=== PATIENT | female | born 1985 | race American Indian/Alaskan Native ===

== ENCOUNTER 2017-04-24 20:45 | Emergency (ER) | payer MEDICAID ==
[2017-04-24 21:31] LABS: Basophils % (Auto) 0.3 % (0.0-1.8); Eosinophils % (Auto) 0.4 % (0.0-4.3); Hematocrit 28.7 % (30.3-42.9); Hemoglobin 9.7 gm/dl (10.1-14.3); Mean Corpuscular HGB Conc 34 % (30-34); Mean Corpuscular Hemoglobin 30 pg (28-32); Mean Corpuscular Volume 87 fl (79-97); Platelet Count 228 K/mm3 (140-440); Red Blood Count 3.28 M/mm3 (3.65-5.03); Red Cell Distribution Width 14.3 % (13.2-15.2); White Blood Count 6.2 K/mm3 (4.5-11.0)
[2017-04-24] MEDS ORDERED: NACL 0.9% 1000 ML 1,000 ML IV ONE (21:36)
[2017-04-24 21:52] LABS: Albumin 3.6 g/dL (3.9-5); Albumin/Globulin Ratio 1.1 %; Alkaline Phosphatase 40 units/L (35-129); Anion Gap 17 mmol/L; Blood Urea Nitrogen 8 mg/dL (7-17); Calcium 8.4 mg/dL (8.4-10.2); Carbon Dioxide 21 mmol/L (22-30); Chloride 103.7 mmol/L (98-107); Glucose 128 mg/dL (65-100); Potassium 3.9 mmol/L (3.6-5.0); Sodium 138 mmol/L (137-145); Total Protein 6.8 g/dL (6.3-8.2)
[2017-04-24 22:00] LABS: Alanine Aminotransferase < 5 units/L (7-56)
[2017-04-24 23:30] VITALS: BP 108/63
[2017-04-24 23:35] LABS: Urine Drugs of Abuse Note Disclamer
--- NOTE | 2017-04-24 23:43 | Emergency Department Report ---
ED Syncope HPI - General Chief Complaint: Syncope Stated Complaint: LACERATION TO HEAD/FALL Time Seen by Provider: 04/24/17 21:35 - History of Present Illness Initial Comments: Patient is a 31-year-old female at 27 weeks who presents status post syncope and right head pain. Patient states that she was out restaurant and then she got up from standing and walked one or 2 feet and then fell. She fell on her right head she had no loss of consciousness. She felt like she wanted to get back up right after the fall. Her pain is a 4 out of 10 minutes located in the right temporal area nothing makes it better or worse. Patient states that she has had any syncopal episodes before in the past. She states that she hasn't been drinking much water today and hasn't had much to eat because she's been slightly nauseous. 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 - Related Data Allergies/Adverse Reactions: Allergies No Known Allergies Allergy (Unverified 04/24/17 20:50) Home Medications: Ambulatory Orders Iron 100 Plus Tablet 1 cap PO DAILY 04/24/17 Complete Caplet 1 cap PO DAILY 04/24/17 ED Review of Systems ROS: Stated complaint: LACERATION TO HEAD/FALL Other details as noted in HPI Constitutional: denies: chills, fever Eyes: denies: eye pain, eye discharge, vision change ENT: denies: ear pain, throat pain Respiratory: denies: cough, shortness of breath, wheezing Cardiovascular: syncope. denies: chest pain, palpitations Endocrine: no symptoms reported Gastrointestinal: denies: abdominal pain, nausea, diarrhea Genitourinary: denies: urgency, dysuria, discharge Musculoskeletal: denies: back pain, joint swelling, arthralgia Skin: denies: rash, lesions Neurological: headache. denies: weakness, paresthesias Psychiatric: denies: anxiety, depression Hematological/Lymphatic: denies: easy bleeding, easy bruising ED Past Medical Hx - Past Medical History Previous Medical History?: No - Surgical History Past Surgical History?: No - Social History Smoking Status: Never Smoker Substance Use Type: None - Medications Home Medications: Home Medications Medication Instructions Recorded Confirmed Last Taken Type Iron 100 Plus Tablet 1 cap PO DAILY 04/24/17 04/24/17 Unknown History Complete Caplet 1 cap PO DAILY 04/24/17 04/24/17 Unknown History ED Physical Exam - General Limitations: No Limitations General appearance: alert, in no apparent distress - Head Head exam: Present: normocephalic, other (2 x 3 cm abrasion no laceration) - Eye Eye exam: Present: normal appearance - ENT ENT exam: Present: mucous membranes moist - Neck Neck exam: Present: normal inspection - Respiratory Respiratory exam: Present: normal lung sounds bilaterally. Absent: respiratory distress - Cardiovascular Cardiovascular Exam: Present: regular rate, normal rhythm. Absent: systolic murmur, diastolic murmur, rubs, gallop - GI/Abdominal GI/Abdominal exam: Present: soft, normal bowel sounds, other (gravid uterus feel baby kicking) - Extremities Exam Extremities exam: Present: normal inspection - Back Exam Back exam: Present: normal inspection - Neurological Exam Neurological exam: Present: alert, oriented X3 - Psychiatric Psychiatric exam: Present: normal affect, normal mood - Skin Skin exam: Present: warm, dry, intact, normal color. Absent: rash ED Course Vital Signs 04/24/17 04/24/17 04/24/17 20:52 20:57 21:00 Temperature 98.4 F Pulse Rate 55 L 78 Respiratory 16 14 Rate Blood Pressure 77/36 95/48 95/48 Blood Pressure 95/48 [Left] O2 Sat by Pulse 99 100 100 Oximetry 04/24/17 04/24/17 04/24/17 21:15 21:30 21:45 Temperature Pulse Rate 76 74 74 Respiratory 23 18 17 Rate Blood Pressure 105/60 106/55 106/62 Blood Pressure [Left] O2 Sat by Pulse 100 100 100 Oximetry 04/24/17 04/24/17 04/24/17 22:00 22:15 22:30 Temperature Pulse Rate 75 82 76 Respiratory 22 11 L 20 Rate Blood Pressure 103/59 107/60 108/64 Blood Pressure [Left] O2 Sat by Pulse 100 100 Oximetry 04/24/17 04/24/17 04/24/17 22:45 23:00 23:28 Temperature Pulse Rate 75 73 76 Respiratory 28 H 33 H 22 Rate Blood Pressure 105/64 108/63 Blood Pressure [Left] O2 Sat by Pulse 100 100 100 Oximetry 04/24/17 04/24/17 23:30 23:46 Temperature Pulse Rate 83 71 Respiratory 21 19 Rate Blood Pressure Blood Pressure [Left] O2 Sat by Pulse 100 100 Oximetry ED Medical Decision Making - Lab Data Result diagrams: 04/24/17 21:16 04/24/17 21:16 Labs 04/24/17 04/24/17 04/24/17 20:53 21:16 21:16 WBC 6.2 RBC 3.28 L Hgb 9.7 L Hct 28.7 L MCV 87 MCH 30 MCHC 34 RDW 14.3 Plt Count 228 Lymph % (Auto) 25.2 Glades % (Auto) 5.5 Eos % (Auto) 0.4 Baso % (Auto) 0.3 Lymph # 1.6 Glades # 0.3 Eos # 0.0 Baso # 0.0 Seg Neutrophils % 68.6 Seg Neutrophils # 4.2 Sodium 138 Potassium 3.9 Chloride 103.7 Carbon Dioxide 21 L Anion Gap 17 BUN 8 Creatinine 0.5 L Estimated GFR > 60 BUN/Creatinine Ratio 16.00 Glucose 128 H POC Glucose 145 H Lactic Acid Calcium 8.4 Magnesium 2.00 Total Bilirubin 0.20 AST 18 ALT < 5 L Alkaline Phosphatase 40 Total Protein 6.8 Albumin 3.6 L Albumin/Globulin Ratio 1.1 TSH Urine Color Urine Turbidity Urine pH Ur Specific [place] Urine Protein Urine Glucose (UA) Urine Ketones Urine Blood Urine Nitrite Urine Bilirubin Urine Urobilinogen Ur Leukocyte Esterase Urine WBC (Auto) Urine RBC (Auto) U Epithel Cells (Auto) Urine Bacteria (Auto) Hyaline Casts Salicylates Urine Opiates Screen Urine Methadone Screen Acetaminophen Ur Barbiturates Screen Ur Phencyclidine Scrn Ur Amphetamines Screen U Benzodiazepines Scrn Urine Cocaine Screen U Marijuana (THC) Screen Drugs of Abuse Note Plasma/Serum Alcohol Blood Type Antibody Screen 04/24/17 04/24/17 04/24/17 21:16 21:16 21:16 WBC RBC Hgb Hct MCV MCH MCHC RDW Plt Count Lymph % (Auto) Glades % (Auto) Eos % (Auto) Baso % (Auto) Lymph # [place] # Eos # Baso # Seg Neutrophils % Seg Neutrophils # Sodium Potassium Chloride Carbon Dioxide Anion Gap BUN Creatinine Estimated GFR BUN/Creatinine Ratio Glucose POC Glucose Lactic Acid 1.00 Calcium Magnesium Total Bilirubin AST ALT Alkaline Phosphatase Total Protein Albumin Albumin/Globulin Ratio TSH 0.549 Urine Color Urine Turbidity Urine pH Ur Specific [place] Urine Protein Urine Glucose (UA) Urine Ketones Urine Blood Urine Nitrite Urine Bilirubin Urine Urobilinogen Ur Leukocyte Esterase Urine WBC (Auto) Urine RBC (Auto) U Epithel Cells (Auto) Urine Bacteria (Auto) Hyaline Casts Salicylates < 0.3 L Urine Opiates Screen Urine Methadone Screen Acetaminophen Ur Barbiturates Screen Ur Phencyclidine Scrn Ur Amphetamines Screen U Benzodiazepines Scrn Urine Cocaine Screen U Marijuana (THC) Screen Drugs of Abuse Note Plasma/Serum Alcohol Blood Type Antibody Screen 04/24/17 04/24/17 04/24/17 21:16 21:16 21:16 WBC RBC Hgb Hct MCV MCH MCHC RDW Plt Count Lymph % (Auto) [place]ades % (Auto) Eos % (Auto) Baso % (Auto) Lymph # [place] # Eos # Baso # Seg Neutrophils % Seg Neutrophils # Sodium Potassium Chloride Carbon Dioxide Anion Gap BUN Creatinine Estimated GFR BUN/Creatinine Ratio Glucose POC Glucose Lactic Acid Calcium Magnesium Total Bilirubin AST ALT Alkaline Phosphatase Total Protein Albumin Albumin/Globulin Ratio TSH Urine Color Urine Turbidity Urine pH Ur Specific [place] Urine Protein Urine Glucose (UA) Urine Ketones Urine Blood Urine Nitrite Urine Bilirubin Urine Urobilinogen Ur Leukocyte Esterase Urine WBC (Auto) Urine RBC (Auto) U Epithel Cells (Auto) Urine Bacteria (Auto) Hyaline Casts Salicylates Urine Opiates Screen Urine Methadone Screen Acetaminophen < 15.0 Ur Barbiturates Screen Ur Phencyclidine Scrn Ur Amphetamines Screen U Benzodiazepines Scrn Urine Cocaine Screen U Marijuana (THC) Screen Drugs of Abuse Note Plasma/Serum Alcohol < 0.01 Blood Type O POSITIVE Antibody Screen Negative 04/24/17 04/24/17 04/24/17 23:30 23:30 23:38 WBC RBC Hgb Hct MCV MCH MCHC RDW Plt Count Lymph % (Auto) Glades % (Auto) Eos % (Auto) Baso % (Auto) Lymph # [place] # Eos # Baso # Seg Neutrophils % Seg Neutrophils # Sodium Potassium Chloride Carbon Dioxide Anion Gap BUN Creatinine Estimated GFR BUN/Creatinine Ratio Glucose POC Glucose Lactic Acid 0.70 Calcium Magnesium Total Bilirubin AST ALT Alkaline Phosphatase Total Protein Albumin Albumin/Globulin Ratio TSH Urine Color Straw Urine Turbidity Clear Urine pH 7.0 Ur Specific [place] 1.006 Urine Protein <15 mg/dl Urine Glucose (UA) Neg Urine Ketones Tr Urine Blood Neg Urine Nitrite Neg Urine Bilirubin Neg Urine Urobilinogen < 2.0 Ur Leukocyte Esterase Neg Urine WBC (Auto) 2.0 Urine RBC (Auto) 3.0 U Epithel Cells (Auto) 4.0 Urine Bacteria (Auto) 1+ Hyaline Casts 4 Salicylates Urine Opiates Screen Presumptive negative Urine Methadone Screen Presumptive negative Acetaminophen Ur Barbiturates Screen Presumptive negative Ur Phencyclidine Scrn Presumptive negative Ur Amphetamines Screen Presumptive negative U Benzodiazepines Scrn Presumptive negative Urine Cocaine Screen Presumptive negative U Marijuana (THC) Screen Presumptive positive Drugs of Abuse Note Disclamer Plasma/Serum Alcohol Blood Type Antibody Screen - EKG Data -: EKG Interpreted by Me - EKG Data 04/24/17 23:43 EKG shows normal sinus rhythm also shows minimal criteria for LVH. No axis deviation no ST segment elevation or T-wave inversion. - Medical Decision Making Chief medical diagnosis: Vasovagal syncope secondary to dehydration Differential medical diagnosis: Hyponatremia, , urinary tract infection IV fluids, CBC, CMP, EKG, ED bedside ultrasound ED [id number] ultrasound: Shows intrauterine with viable heartbeat. movement. Patient's clinical signs and symptoms are consistent with vasovagal syncope secondary to patient not drinking a lot of water. The patient getting up quickly from her chair. Will hydrate patient and will give patient return precautions come back to the emergency department. Patient's lab work is unremarkable. Patient agrees to plan. Critical care attestation.: If time is entered above; I have spent that time in minutes in the direct care of this critically ill patient, excluding procedure time. ED Disposition Clinical Impression: Vasovagal syncope, Dehydration during Qualifiers: Weeks of gestation: 27 weeks Qualified Code(s): Z3A.27 - 27 weeks gestation of Forehead abrasion Qualifiers: Encounter type: initial encounter Qualified Code(s): S00.81XA - Abrasion of other part of head, initial encounter Disposition: DC-01 TO HOME OR SELFCARE Is pt being admited?: No Does the pt Need Aspirin: No Condition: Stable Instructions: Syncope (ED) Referrals: DANIEL NAVAS MD [Primary Care Provider] - 3-5 Days Time of Disposition: 23:46
[2017-04-24] MEDS ORDERED: TYLENOL PO ONE (23:46)
[2017-04-24 23:50] LABS: Bacteria,Urine 1+ /HPF (Negative); Bilirubin,Urine NEG (Negative); Blood,Urine NEG (Negative); Ketones,Urine TR mg/dL (Negative); Leukocyte Esterase,Urine NEG (Negative); Nitrite,Urine NEG (Negative); Protein,Urine <15 mg/dL mg/dL (Negative); Urobilinogen,Urine < 2.0 mg/dL (<2.0)
== END 2017-04-24 23:56 | disposition home or self-care (01) ==
LOC: ED 20:45
DX: O26.892 Other specified pregnancy related conditions, second trimester (principal); S00.81XA Abrasion of other part of head, initial encounter; R55 Syncope and collapse; E86.0 Dehydration; W18.30XA Fall on same level, unspecified, initial encounter; Y93.89 Activity, other specified; Y92.89 Other specified places as the place of occurrence of the external cause; Y99.8 Other external cause status
CPT/HCPCS: 36415; 80053; 80307; 81001; 82140; 82962; 83735; 84443; 85025; 86850; 86900; 86901; 93005; 93010; 96360; 99284; G0480; J7030; 80320

== ENCOUNTER 2017-08-13 12:47 | Inpatient (IN) | payer MEDICAID ==
[2017-08-13] MEDS ORDERED: MAGNESIUM SULFATE 4GM/100ML 4 GM/100 ML BAG IV ONE (14:03)
--- NOTE | 2017-08-13 14:06 | History and Physical Report ---
History of Present Illness Date of examination: 08/13/17 Date of admission: 08/13/17 13:16 Chief complaint: elevated blood pressure, headache History of present illness: Pt is a 32 year old -Italian female who presented to the office initially for preoperative visit for tubal ligation. However, her blood pressure was noted to be 160-170/90s with no previous history of hypertension. The patient does complain of headache x 1 week. She denies blurred vision or scotomata. She recently had a vaginal after approximately 6 wks ago that she tolerated well. 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 Family/Genetic History: diabetes Social history: no significant social history - Obstetrical History : 6 Medications and Allergies Allergies Allergy/AdvReac Type Severity Reaction Status Date / Time No Known Allergies Allergy Verified 08/11/17 18:48 Home Medications Medication Instructions Recorded Confirmed Last Taken Type Ferrous Sulfate [Feosol 325 MG tab] 325 mg PO BID #60 tablet 07/05/17 08/11/17 Unknown Rx Review of Systems All systems: negative - Physical Exam Breasts: Positive: deferred Cardiovascular: Regular rate Lungs: Positive: Clear to auscultation Abdomen: Positive: soft Extremities: Positive: normal Results Result Diagrams: 08/13/17 14:33 08/13/17 14:33 All other labs normal. Assessment and Plan A: s/p recent Preeclampsia P: Admit for magnesium sulfate for seizure prophylaxis. PIH labs Magnesium levels q 8 hrs Labetalol 100 mg BID Continue to monitor clinical status.
[2017-08-13] MEDS ORDERED: CALCIUM GLUCONATE IV ONE (14:30)
[2017-08-13 14:58] LABS: Hematocrit 34.3 % (30.3-42.9); Hemoglobin 11.1 gm/dl (10.1-14.3); Mean Corpuscular HGB Conc 32 % (30-34); Mean Corpuscular Hemoglobin 28 pg (28-32); Mean Corpuscular Volume 87 fl (79-97); Platelet Count 236 K/mm3 (140-440); Red Blood Count 3.93 M/mm3 (3.65-5.03); Red Cell Distribution Width 14.6 % (13.2-15.2)
[2017-08-13] MEDS ORDERED: PITOCin/NS 20 UNIT/1000ML DRIP 20 UNITS/1,000 ML BAG IV SCH (15:00)
[2017-08-13] MEDS ORDERED: MAGNESIUM SULFATE 40GM/1000ML 40 GM/1,000 ML BAG IV SCH (15:00)
[2017-08-13 15:30] LABS: Alanine Aminotransferase 8 units/L (7-56); Lactate Dehydrogenase 179 units/L (91-180); Uric Acid 3.9 mg/dL (3.5-7.6)
[2017-08-13] MEDS: LACTATED RINGERS 1,000 ML IV SCH (16:22)
[2017-08-13 17:56] LABS: Bacteria,Urine 1+ /HPF (Negative); Bilirubin,Urine NEG (Negative); Blood,Urine LG (Negative); Ketones,Urine NEG (Negative); Leukocyte Esterase,Urine NEG (Negative); Mucus,Urine FEW /HPF; Nitrite,Urine NEG (Negative); Urobilinogen,Urine < 2.0 mg/dL (<2.0)
[2017-08-13] MEDS: NORMODYNE PO SCH (21:38)
[2017-08-14] MEDS: LACTATED RINGERS 1,000 ML IV SCH ×2 (01:39→13:47)
[2017-08-14] MEDS ORDERED: TYLENOL #3 PO PRN (05:57)
[2017-08-14] MEDS ORDERED: TYLENOL PO PRN (06:02)
[2017-08-14] MEDS: NORMODYNE PO SCH (11:03)
[2017-08-14] MEDS ORDERED: FIORICET PO PRN (14:03)
--- NOTE | 2017-08-14 16:11 | Progress Note ---
Assessment and Plan A: HD#2 admitted for Preeclampsia on Magnesium sulfate for seizure prophylaxis P: Continue magnesium x 24 hrs. Per pt request discharge this evening with follow up in 1 week. Subjective - Subjective Date of service: 08/14/17 Principal diagnosis: Preeclampsia Interval history: No overnight events. Pt still has headache. Patient reports: appetite normal, voiding normally, pain well controlled, ambulating normally, no nauseated Objective - Vital Signs Latest vital signs: Vital Signs Temp Pulse Resp BP BP Pulse Ox 08/14/17 12:32 97.7 F 76 18 129/86 99 08/14/17 08:35 97.4 F L 18 137/95 08/14/17 06:41 18 08/14/17 06:39 98.4 F 52 L 154/96 08/14/17 04:25 98.6 F 57 L 18 152/93 08/14/17 00:00 98.0 F 59 L 18 162/92 08/13/17 22:10 98.2 F 62 18 134/94 08/13/17 20:00 98.2 F 60 18 155/95 08/13/17 19:00 18 08/13/17 16:48 66 133/78 08/13/17 16:42 64 133/81 08/13/17 16:35 65 127/82 08/13/17 16:31 66 136/83 08/13/17 16:25 60 134/91 08/13/17 16:19 60 133/82 Intake and Output 08/14/17 08/14/17 08/14/17 06:59 14:59 22:59 Intake Total 1360 1280 Balance 1360 1280 Intake: IV 1000 1000 Lactated Ringers 1,000 ml 1000 1000 @ 125 mls/hr IV DIRECT [facility] Rx#:[id number] Oral 360 280 Other: Intake, Other Source Saline Solution Total, Intake Amount 120 280 # Voids Void 2 1 - Exam Breasts: Present: deferred Cardiovascular: Present: Regular rate Lungs: Present: Clear to auscultation Abdomen: Present: soft Extremities: Present: normal - Labs Labs: Abnormal lab results 08/14/17 Range/Units 00:20 Magnesium 4.60 H (1.7-2.3) mg/dL
--- NOTE | 2017-08-14 16:16 | Discharge Summary ---
Providers - Providers Date of Admission: 08/13/17 13:16 Date of discharge: 08/14/17 Attending physician: KALA STEWART Primary care physician: LEEANNA GIRARD Hospitalization Reason for admission: other ( Preeclampsia ) Procedure details: IV Magnesium Sulfate for seizure prophylaxis Other procedures: none complications: none Hospital course: Pt was admitted for IV Magnesium Sulfate for seizure prophylaxis for 24 hrs. She had serial blood pressures and was discharged on the evening of HD#1. She will follow up in 1 week for a blood pressure check. Condition at discharge: Stable Disposition: DC-01 TO HOME OR SELFCARE - Discharge Diagnoses (1) Preeclampsia in period Status: Acute Plan - Discharge Medications Prescriptions: Labetalol HCl 100 mg PO BID #60 tablet - Provider Discharge Summary Activity: routine Diet: routine Instructions: routine Additional instructions: [] Smoking cessation referral if applicable(refer to patient education folder for contact #) [] Refer to [facility] Booklet Call your doctor immediately for: * Fever > 100.5 * Heavy vaginal bleeding ( >1 pad per hour) * Severe persistent headache * Shortness of breath * Reddened, hot, painful area to leg or breast * Drainage or odor from incision. * Keep incision clean and dry at all times and follow doctor's instructions regarding bathing/showering - Follow up plan Follow up: LEEANNA GIRARD MD [Primary Care Provider] - 7 Days KALA STEWART MD [Staff Physician] - 08/18/17 (as scheduled for bilateral tubal ligation )
[2017-08-14 18:01] VITALS: BP 151/96
== END 2017-08-14 18:22 | disposition home or self-care (01) | DRG 776 ==
LOC: UNDOADMIN 12:47 → 3A 12:47 → OB 13:16
PROVIDERS: ADMIT Obstetrics & Gynecology; ATTEND Obstetrics & Gynecology
DX: O14.95 Unspecified pre-eclampsia, complicating the puerperium (principal); Z83.3 Family history of diabetes mellitus
CPT/HCPCS: 36415; 81001; 82565; 83615; 83735; 84450; 84460; 84550; 85027; J0610; J3475; J7120

== ENCOUNTER 2017-08-18 06:55 | Day surgery (SDC) | payer MEDICAID ==
--- NOTE | 2017-08-15 03:40 | History and Physical Report ---
History of Present Illness Date of examination: 08/13/17 Chief complaint: Undesired Fertility History of present illness: Pt is a 32 year old female who presents for surgical sterilization. She is aware of long-acting reversible methods and desires to proceed. She was recently hospitalized from 08/13/17 to 08/14/17 for preeclampsia. 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 Family/Genetic History: diabetes Social history: no significant social history - Obstetrical History : 7 Medications and Allergies Allergies Allergy/AdvReac Type Severity Reaction Status Date / Time No Known Allergies Allergy Verified 08/11/17 18:48 Home Medications Medication Instructions Recorded Confirmed Last Taken Type Ferrous Sulfate [Feosol 325 MG tab] 325 mg PO BID #60 tablet 07/05/17 08/11/17 Unknown Rx Butalbital/Acetaminophen 1 each PO Q6H PRN #30 tablet 08/14/17 Unknown Rx [Butalbital-Acetaminophn 50-325] Labetalol HCl 100 mg PO BID #60 tablet 08/14/17 Unknown Rx Review of Systems All systems: negative - Physical Exam Breasts: Positive: deferred Cardiovascular: Regular rate Lungs: Positive: Clear to auscultation Abdomen: Positive: soft Extremities: Positive: normal Results All other labs normal. Assessment and Plan A: Undesired Fertility Hypertension ( preeclampsia; taking Labetalol 100 mg BID) P: Proceed with laparoscopic bilateral tubal ligation and other indicated procedures.
[~2017-08-18 06:55] MED LIST: ANCEF/STERILE WATER 2 GM/20 ML 2 GM/20 ML SYRINGE IV NR
[2017-08-18] MEDS ORDERED: NACL BACTERIOSTATIC INFILTRATI ONE (07:37)
[2017-08-18] MEDS ORDERED: ZEMURON IV ONE (08:11)
[2017-08-18] MEDS ORDERED: SUBLIMAZE ONE (08:11)
[2017-08-18] MEDS ORDERED: XYLOCAINE MPF 2% ONE (08:11)
[2017-08-18] MEDS ORDERED: DIPRIVAN 10 MG/ML IV ONE (08:12)
[2017-08-18 08:41] LABS: Hematocrit 34.6 % (30.3-42.9); Hemoglobin 11.5 gm/dl (10.1-14.3); Mean Corpuscular HGB Conc 33 % (30-34); Mean Corpuscular Hemoglobin 29 pg (28-32); Mean Corpuscular Volume 86 fl (79-97); Platelet Count 221 K/mm3 (140-440); Red Blood Count 4.03 M/mm3 (3.65-5.03); Red Cell Distribution Width 14.6 % (13.2-15.2)
--- NOTE | 2017-08-18 08:44 | Anesthesia Consultation ---
Anesthesia Consult and Med Hx Date of service: 08/18/17 - Airway Anesthetic Teeth Evaluation: Good ROM Head & Neck: Adequate Mental/Hyoid Distance: Adequate Mallampati Class: Class II Intubation Access Assessment: Good - Pulmonary Exam CTA: Yes - Cardiac Exam Cardiac Exam: No Murmur - Pre-Operative Health Status ASA Pre-Surgery Classification: ASA2 Proposed Anesthetic Plan: General - Pulmonary Hx Smoking: Yes Hx Asthma: No COPD: No Hx Pneumonia: No - Central Nervous System Hx Psychiatric Problems: No - Endocrine Hx End Stage Renal Disease: No - Hematic Hx Anemia: Yes - Other Systems Hx Cancer: No
[2017-08-18] MEDS ORDERED: DECADRON ONE (08:45)
[2017-08-18] MEDS ORDERED: ZOFRAN ONE (08:45)
--- NOTE | 2017-08-18 08:45 | Anesthesia Day of Surgery ---
Anesthesia Day of Surgery - Day of Surgery Patient Examined: Yes Patient H&P Reviewed: Yes Patient is NPO: Yes
[2017-08-18] MEDS ORDERED: VERSED IV NR (09:00)
[2017-08-18] MEDS ORDERED: PEPCID PO NR (09:00)
[2017-08-18] MEDS ORDERED: LACTATED RINGERS 1,000 ML IV SCH (09:00)
[2017-08-18] MEDS ORDERED: MARCAINE 0.5% 30 ML INFILTRATI ONE (09:29)
[2017-08-18] MEDS ORDERED: MARCAINE 0.5% INFILTRATI ONE (09:47)
[2017-08-18] MEDS ORDERED: NACL 0.9% IR ONE (09:53)
[2017-08-18] MEDS ORDERED: SILVER NITRATE TP ONE ×2 (10:07→10:22)
[2017-08-18] MEDS ORDERED: NORMODYNE IV ONE (10:16)
[2017-08-18] MEDS ORDERED: DILAUDID ONE (10:16)
[2017-08-18] MEDS ORDERED: LACTATED RINGERS 1,000 ML ONE (10:16)
[2017-08-18] MEDS ORDERED: ROBINUL ONE (10:17)
[2017-08-18] MEDS ORDERED: TORADOL ONE (10:30)
--- NOTE | 2017-08-18 10:30 | Operative Report ---
Operative Report Operative Report: Date of procedure: August 18, 2017 Preoperative diagnosis: Multiparity desires permanent sterilization Postoperative diagnosis: Same Procedure: Laparoscopic bilateral tubal ligation via Filshie clip method Surgeon: Yohana Osuna M.D. Anesthesia: General endotracheal anesthesia Findings: 1) Small anteverted uterus sounding to 8 cm 2) Normal appearing uterus, ovaries and fallopian tubes Estimated blood loss: 25 mL IV fluid: 1200 mL Urine output: 200 mL clear prior to the procedure Specimens: None Complications: None. Counts correct 2 Disposition: Stable to PACU Indications for procedure: Patient is 32 year-old gravida7 para [id number] who desires permanent sterilization. She is aware of long-acting reversible contraceptives and desires to proceed. Operation in detail: After the risks, benefits, alternatives and complications of the procedure were explained to the patient, she gave informed consent for the procedure. She was subsequently taken to the operating room with her IV noted to be running and placed in the dorsal supine position with sequential compression devices functioning. General endotracheal anesthesia was then induced without difficulty. An exam under anesthesia was then performed yielding a small anteverted uterus. The patient was then placed in placement dorsal lithotomy position and prepped and draped in normal sterile fashion. A timeout was then performed. The bladder was then drained of urine yielding 200 mL of clear urine. An open sided speculum was placed into the vagina for visualization of the cervix. A single-tooth tenaculum was placed on the anterior lip of the cervix for traction. The uterus was then sounded to 8 cm. A uterine manipulator was then placed. The single-tooth tenaculum and speculum were then removed from the vagina. The surgeon's gloves were then changed. Attention was then turned to entry into the abdominal cavity. A 5 mm infraumbilical incision was made with an 11 blade. The skin was grasped on either side of the umbilicus and tented up. The Veres needle was placed into the peritoneal cavity, confirmed with a saline drop test. The abdomen was then insufflated with CO2 gas to a pressure of 15 mmHg. A 5 mm Visiport trocar was then placed. An anatomic survey was then performed with findings as indicated above. A second trocar site was created 4 cm superior to the pubic symphysis in the midline measuring 8 mm. An 8 mm trocar was then placed under direct visualization. The patient was placed in Trendelenburg position. The uterus was elevated, and two Filshie clips were then placed across each fallopian tube at the level of the ampullae. At this time, all instruments were removed from the abdominal cavity. The pneumoperitoneum was released. The incisions were then infiltrated with quarter percent Marcaine. The incisions were then reapproximated with 4-0 Vicryl in a subcuticular fashion. They were then each covered with Steri-Strips and a tegaderm. All instruments were then removed from the vagina. At this time the procedure was ended. The patient was placed into the dorsal supine position and extubated without difficulty. She was subsequently taken to the PACU in stable condition. All instrument, needle and lap counts were correct 2.
--- NOTE | 2017-08-18 10:33 | Short Stay Summary ---
Short Stay Documentation Date of service: 08/18/17 - History H&P: dictated Social history: no significant social history - Allergies and Medications Current Medications: Allergies No Known Allergies Allergy (Verified 08/11/17 18:48) Home Medications Medication Instructions Recorded Confirmed Last Taken Type Ferrous Sulfate [Feosol 325 MG tab] 325 mg PO BID #60 tablet 07/05/17 08/18/17 08/17/17 08:00 Rx Butalbital/Acetaminophen 1 each PO Q6H PRN #30 tablet 08/14/17 08/18/17 19:00 Rx [Butalbital-Acetaminophn 50-325] Labetalol HCl 100 mg PO BID #60 tablet 08/14/17 08/18/17 08/18/17 06:00 Rx Ibuprofen [Motrin] 800 mg PO Q8HR PRN #30 tablet 08/18/17 Unknown Rx oxyCODONE /ACETAMINOPHEN [Percocet 1 tab PO Q6HR PRN #30 tablet 08/18/17 Unknown Rx 5/325] Active Medications Famotidine (Pepcid) 20 mg PO PREOP NR Stop: 08/18/17 12:00 Last Admin: 08/18/17 08:47 Dose: 20 mg Cefazolin Sodium (Ancef/Sterile Water 2 Gm/20 Ml) 2 gm in 20 mls @ 80 mls/hr IV PREOP NR PRN Reason: Protocol Stop: 08/18/17 23:59 Lactated Ringer's (Lactated Ringers) 1,000 mls @ 75 mls/hr IV DIRECT DARIEL Last Admin: 08/18/17 08:47 Dose: 75 mls/hr Midazolam HCl (Versed) 2 mg IV PREOP NR Stop: 08/18/17 23:59 Last Admin: 08/18/17 08:51 Dose: 2 mg - Physical exam Breasts: deferred - Brief post op/procedure progress note Date of procedure: 08/18/17 Pre-op diagnosis: Undesired Fertility Post-op diagnosis: same Procedure: Laparoscopic bilateral tubal ligation Anesthesia: GETA Findings: 1) Small anteverted uterus sounding to 8 cm 2) Normal appearing uterus, ovaries and fallopian tubes Surgeon: KALA OSUNA Estimated blood loss: minimal (25 mL) Pathology: none Condition: stable - Hospital course Hospital course: Pt underwent laparoscopic bilateral tubal ligation which she tolerated well. She was observed in the PACU until she met discharge criteria. She will follow up in the office in two weeks with Dr Osuna. - Disposition Condition at discharge: Stable Disposition: DC-01 TO HOME OR SELFCARE - Discharge Diagnoses (1) Encounter for sterilization Status: Acute (2) Elevated blood pressure reading Status: Acute (3) hypertension Status: Acute Short Stay Discharge Plan Activity: other (Nothing in vagina x 4 weeks ) Weight Bearing Status: Full Weight Bearing Diet: regular Wound: keep clean and dry, remove dressing (on Wednesday, August 20, 2017 ) Follow up with: KALA OSUNA MD [Staff Physician] - 08/30/17 (please call for appt - incision check ) Prescriptions: Ibuprofen [Motrin] 800 mg PO Q8HR PRN #30 tablet PRN Reason: Pain oxyCODONE /ACETAMINOPHEN [Percocet 5/325] 1 tab PO Q6HR PRN #30 tablet PRN Reason: Pain
[2017-08-18] MEDS ORDERED: DILAUDID IV PRN (10:50)
[2017-08-18] MEDS ORDERED: APRESOLINE ONE (10:55)
[2017-08-18] MEDS: DILAUDID IV PRN ×2 (11:05→11:25)
[2017-08-18 12:43] VITALS: BP 149/94
--- NOTE | 2017-08-18 13:29 | Post Anesthesia Evaluation ---
- Post Anesthesia Evaluation Patient Participated: Yes Airway Patent: Yes Stable Respiratory Function: Yes Nausea/Vomiting: No Temp > 96.8F: Yes Pain Manageable: Yes Adequeate Hydration: Yes Anesthesia Complications: No Block Receding Appropriately: Not Applicable Patient on Ventilator: No
== END 2017-08-18 13:10 | disposition home or self-care (01) ==
LOC: OR 06:55
PROVIDERS: ATTEND Obstetrics & Gynecology
DX: Z30.2 Encounter for sterilization (principal); I10 Essential (primary) hypertension; F17.200 Nicotine dependence, unspecified, uncomplicated; Z79.899 Other long term (current) drug therapy
CPT/HCPCS: 36415; 58671; 81025; 85027; 86850; 86900; 86901; J0360; J0690; J1100; J1170; J1885; J2250; J2405; J2704; J3010; J7120